=== PATIENT | female | born 1970 | race Caucasian/White ===

== ENCOUNTER 2016-04-03 09:06 | Day surgery (SDC) | payer OTHER ==
[2016-04-01 12:27] LABS: APPEARANCE,URINE CLEAR; BILIRUBIN,URINE NEGATIVE (NEGATIVE); GLUCOSE, URINE NEGATIVE (NEGATIVE); KETONES,URINE NEGATIVE (NEGATIVE); LEUKOCYTE ESTERASE,URINE NEGATIVE (NEGATIVE); NITRITE,URINE NEGATIVE (NEGATIVE); PROTEIN,URINE NEGATIVE (NEGATIVE); URINE SPECIFIC GRAVITY 1.009; UROBILINOGEN,URINE NEGATIVE mg/dL (<2.0)
[2016-04-01 12:57] LABS: HEMATOCRIT 37.9 % (36.0-47.0); HEMOGLOBIN 12.7 g/dL (12.0-15.5); HGB HCT DIFFERENCE 0.2; MEAN CORPUSCULAR HEMOGLOBIN 29.4 pg (27.0-33.4); MEAN CORPUSCULAR HGB CONC 33.6 g/dL (32.0-36.0); MEAN CORPUSCULAR VOLUME 88 fl (80-97); RED BLOOD COUNT 4.33 10^6/uL (3.72-5.28); RED CELL DISTRIBUTION WIDTH 13.4 % (11.5-14.0); WHITE BLOOD COUNT 5.2 10^3/uL (4.0-10.5)
[~2016-04-03 09:06] MED LIST: BUPIVACAINE HCL 0.5%-EPI 1:200000 INJ/PF 30 ML VIAL ONE; CEFAZOLIN 2 GM/D5W RTU 2 GM/50 ML RTUPB IV PRN; LACTATED RINGERS 1000 ML IV PRN
[2016-04-03] MEDS ORDERED: MIDAZOLAM 2 MG/2 ML INJ ONE (10:46)
[2016-04-03] MEDS ORDERED: SCOPOLAMINE HYDROBROMIDE 1.5 MG PATCH.TD72 ONE (10:46)
[2016-04-03] MEDS ORDERED: PROPOFOL INJ 200 MG/20 ML VIAL IV ONE (10:46)
[2016-04-03] MEDS ORDERED: ACETAMINOPHEN 100 ML IV ONE (10:46)
[2016-04-03] MEDS ORDERED: FENTANYL CITRATE INJ/PF 250 MCG/5 ML AMPULE ONE (10:46)
[2016-04-03] MEDS ORDERED: MORPHINE SULFATE 10 MG/ML INJ ONE (10:47)
[2016-04-03] MEDS ORDERED: FENTANYL CITRATE INJ/PF 100 MCG/2 ML AMPUL ONE ×2 (12:15→12:16)
[2016-04-03] MEDS ORDERED: DIPHENHYDRAMINE HCL 50 MG/ML VIAL IV PRN (12:30)
[2016-04-03] MEDS ORDERED: PROMETHAZINE HCL INJ 25 MG/1 ML VIAL IV PRN (12:30)
[2016-04-03] MEDS ORDERED: MEPERIDINE HCL/PF INJ 25 MG/1 ML DISP.SYRIN IV PRN (12:30)
[2016-04-03] MEDS ORDERED: FENTANYL CITRATE INJ/PF 100 MCG/2 ML AMPUL IV PRN ×3 (12:30)
[2016-04-03] MEDS: PROMETHAZINE HCL INJ 25 MG/1 ML VIAL IV PRN ×2 (13:01→13:10)
[2016-04-03] MEDS ORDERED: PROMETHAZINE HCL INJ 25 MG/1 ML VIAL ONE (13:01)
--- NOTE | 2016-04-03 13:18 | OPERATIVE REPORT E ---
Operative Report NAME: LYNNE WEAVER : 1970 AGE: 45Y DATE OF SURGERY: 04/03/2016 ROOM: PREOPERATIVE DIAGNOSIS: Stress urinary incontinence. POSTOPERATIVE DIAGNOSIS: Solyx midurethral sling. OPERATION PERFORMED: Solyx midurethral sling. SURGEON: NEVA PANTOJA M.D. ANESTHESIA: General endotracheal. ESTIMATED BLOOD LOSS: 150 mL. SPECIMENS TO PATHOLOGY: None. FINDINGS: Hypermobile urethra, small cystocele. DESCRIPTION OF PROCEDURE: After discussing risks, benefits, and alternatives of the procedure and obtaining informed consent, the patient was taken to the OR where general anesthesia was achieved. She was positioned in the dorsal lithotomy position, prepped and draped in the usual standard fashion. Monique was drained with in-and-out catheterization with red rubber catheter. This was left in place during the procedure. The mid urethra was then grasped with 2 Allis clamps and injected with 0.25% Marcaine with epinephrine, total of 3 mL. The vaginal mucosa was incised with a #15 blade longitudinally over the mid urethra. The edges of the vaginal mucosa were grasped with the Allis clamp. Dissection was carried out with the Metzenbaums to the inferior aspect of the pubic ramus. The back of a forceps was used to displace the urethra medially and the right arm of the Solyx midurethral sling was introduced through the incision and up into the transobturator foramen. It was advanced until it was through the transobturator foramen. The delivery arm was then removed. The other side of the Solyx midurethral sling was loaded onto the delivery trocar. The forceps was placed into the incision and the urethra displaced medially on the other side. The left arm of the trocar was then placed through the left transobturator foramen in the standard fashion. A tension-free application under the urethra was assured by placing a hemostat under the urethra and it was assured that the tape was flat. The delivery trocar was removed and the red rubber Haroldo catheter removed as well. Oozing had been noted during the procedure. The vaginal mucosa was closed with 2-0 Vicryl in a running, locked fashion and pressure was held. After holding pressure, excellent hemostasis was observed. The vagina was irrigated and the patient was taken out of dorsal lithotomy, awakened from anesthesia, and went to recovery in stable condition. All sponge, needle, lap and instrument counts were correct x2. DICTATING PHYSICIAN: NEVA PANTOJA M.D. [id number] PHY#: [id number] ID: [id number] JOB#: [id number] ACCT: [id number] cc:NEVA PANTOJA M.D. >
[2016-04-03] MEDS ORDERED: OXYCODONE HCL IR 5 MG TABLET PO PRN ×2 (13:25→13:26)
[2016-04-03] MEDS ORDERED: ONDANSETRON HCL INJ/PF 4 MG/2 ML SDV IV PRN (13:25)
[2016-04-03] MEDS ORDERED: RINGERS SOLUTION,LACTATED 1,000 ML IV PRN (13:29)
[2016-04-03] MEDS ORDERED: NEOSTIGMINE METHYLSULFATE 10 MG/10 ML VIAL ONE (14:22)
[2016-04-03] MEDS ORDERED: SUCCINYLCHOLINE CHLORIDE INJ 200 MG/10 ML VIAL ONE (14:22)
[2016-04-03] MEDS ORDERED: ROCURONIUM BROMIDE INJ 50 MG/5 ML VIAL IV ONE (14:22)
[2016-04-03] MEDS ORDERED: ONDANSETRON HCL INJ/PF 4 MG/2 ML SDV ONE (14:22)
[2016-04-03] MEDS ORDERED: DEXAMETHASONE SOD PHOSPHATE INJ 4 MG/1 ML VIAL ONE (14:22)
[2016-04-03] MEDS ORDERED: KETOROLAC TROMETHAMINE 60 MG/2 ML SDV ONE (14:22)
[2016-04-03] MEDS ORDERED: GLYCOPYRROLATE INJ 0.4 MG/2 ML VIAL ONE (14:22)
[2016-04-03] MEDS ORDERED: LIDOCAINE 2% INJ-PF (20 MG/ML) 10 ML AMPUL ONE (14:22)
[2016-04-03 15:35] VITALS: BP 110/57
== END 2016-04-03 15:10 | disposition home or self-care (01) ==
LOC: OROUT 09:06
PROVIDERS: ATTEND Specialist
PROC: 0TUD4JZ Supplement Urethra with Synthetic Substitute, Percutaneous Endoscopic Approach (ICD-10-PCS; principal; 2016-04-03 11:00)
DX: N39.3 Stress incontinence (female) (male) (principal); F32.9 Major depressive disorder, single episode, unspecified; R01.1 Cardiac murmur, unspecified; Z79.899 Other long term (current) drug therapy; Z87.891 Personal history of nicotine dependence
CPT/HCPCS: 86900; 86901; 36415; 86850; 85027; 81001; 57288; C1771; J2250; J3490 ×3; J1100; J1885; J3010; J2550; J0330; J2405; J2704; J0690; J0131; 860; J2270